=== PATIENT | female | born 1990 | race Asian ===

== ENCOUNTER 2019-07-22 17:54 | Emergency (ER) | payer SELFPAY ==
[~2019-07-22] VITALS: Ht 165.1 cm; Wt 49.9 kg
[2019-07-22 18:13] VITALS: BP 117/64
--- NOTE | 2019-07-22 18:17 | NUR ---
ED Nurse Note: Pt walked in from home, c/o n/v started about 1-2 hours ago. Denies diarrhea. Pt is aaox4, on room air, no resp distress noted. 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 VSS stable at this time.
--- NOTE | 2019-07-22 18:22 | NUR ---
ED Nurse Note: ERMD at bedside.
[2019-07-22] MEDS ORDERED: Morphine Sulfate 2mg/ml Inj(IV/IM USE ONLY) IVP ONE ×2 (18:30→20:00)
--- NOTE | 2019-07-22 19:16 | NUR ---
HAND-OFF: Report given to KEM Nelson. In stable condition.
--- NOTE | 2019-07-22 19:31 | NUR ---
ED Nurse Note: Patient reports an increase in nausea and had an episode of vomitting with ambulation. Will notify ERMD to request order for zofran.
[2019-07-22 19:39] LABS: HEMATOCRIT 46.8 % (37.0-47.0); HEMOGLOBIN 15.9 G/DL (12.0-16.0); MEAN CORPUSCULAR VOLUME 95 FL (80-99); PLATELET COUNT 257 K/UL (150-450); RED BLOOD COUNT 4.94 M/UL (4.20-5.40); RED CELL DISTRIBUTION WIDTH 10.8 % (11.6-14.8); WHITE BLOOD COUNT 11.7 K/UL (4.8-10.8)
[2019-07-22 19:42] LABS: APPEARANCE,URINE SLIGHTLY CLOUDY; BILIRUBIN, URINE NEGATIVE (NEGATIVE); COLOR,URINE AMBER; GLUCOSE, URINE (UA) NEGATIVE (NEGATIVE); KETONES,URINE 2+ (NEGATIVE); LEUKOCYTE ESTERASE ,URINE 2+ (NEGATIVE); NITRITE,URINE NEGATIVE (NEGATIVE); PH,URINE 5 (4.5-8.0); PROTEIN,URINE 1+ (NEGATIVE); UROBILINOGEN,URINE NORMAL MG/DL (0.0-1.0)
--- NOTE | 2019-07-22 19:42 | NUR ---
ED Nurse Note: Patient reports an increase in pain with ambulation to 6/10 on pain scale. Will consult ERMD.
[2019-07-22 19:51] VITALS: BP 113/71
[2019-07-22 19:56] LABS: ANION GAP 14 mmol/L (5-15); BLOOD UREA NITROGEN 9 mg/dL (7-18); CALCIUM 9.8 MG/DL (8.5-10.1); CARBON DIOXIDE 25 MMOL/L (21-32); CHLORIDE 101 MMOL/L (98-107); CREATININE 1.1 MG/DL (0.55-1.30); POTASSIUM 3.5 MMOL/L (3.5-5.1); SODIUM 140 MMOL/L (136-145)
[2019-07-22 20:02] LABS: ALANINE AMINOTRANSFERASE 27 U/L (12-78); ALBUMIN 4.2 G/DL (3.4-5.0); ALKALINE PHOSPHATASE 37 U/L (46-116); ASPARTATE AMINO TRANSFERASE 25 U/L (15-37); BILIRUBIN,TOTAL 0.4 MG/DL (0.2-1.0)
[2019-07-22] MEDS ORDERED: Phenazopyridine 200mg tab ORAL ONE (20:15)
[2019-07-22] MEDS ORDERED: cefTRIAXone 1 GM in NS 55 ML IVPB ONE ×2 (20:15→22:30)
--- NOTE | 2019-07-22 20:23 | Emergency Room Report ---
History of Present Illness General Chief Complaint: Abdominal Pain Source: Patient (Tom Cervantes MD) Present Illness HPI This is a 24-year-old female presents after increased suprapubic abdominal pain. Patient reports having intermittent episodes which are constant but intimately worse. She reports having multiple episodes of vomiting. She reports as being associated suprapubic pain. She denies any prior similar pain in the past. She denies any fever. She reports having multiple episodes of nonbloody emesis. Reports some recent cocaine and alcohol use 3 days ago. One episode of vomiting yesterday. Doesn't think shes' . (Tom Cervantes MD) Allergies: Coded Allergies: NUT - UNSPECIFIED (Unverified Allergy, Unknown, 07/22/19) Uncoded Allergies: NUTS (Allergy, Unknown, 07/22/19) Patient History Past Medical History: see triage record Past Surgical History: other - arthroscopic surgery Last Menstrual Period: 05/2019 Now: No (Tom Cervantes MD) Nursing Documentation-[facility] Past Medical History: No History, Except For Hx Asthma: Yes (Tom Cervantes MD) Review of Systems All Other Systems: negative except mentioned in HPI (Tom Cervantes MD) Physical Exam Vital Signs Date Time Temp Pulse Resp B/P (MAP) Pulse Ox O2 Delivery O2 Flow Rate FiO2 07/22/19 18:00 98.4 66 20 126/75 (92) 99 Room Air Sp02 EP Interpretation: reviewed, normal General Appearance: normal inspection, well appearing, no apparent distress, alert, GCS 15 Head: atraumatic ENT: normal ENT inspection, hearing grossly normal, normal voice Neck: normal inspection, full range of motion, supple, no bony tend Respiratory: normal inspection, lungs clear, normal breath sounds, no respiratory distress, no retraction, no wheezing Cardiovascular #1: regular rate, rhythm, no edema Gastrointestinal: normal inspection, normal bowel sounds, non tender, soft, no guarding, no hernia, tenderness - suprapubic no guarding or rebound Genitourinary: no CVA tenderness Musculoskeletal: normal inspection, back normal, normal range of motion Neurologic: normal inspection, alert, oriented x3, responsive, director [employer] III-XII nml as tested, speech normal Psychiatric: normal inspection, judgement/insight normal, mood/affect normal Skin: no rash (Tom Cervantes MD) Medical Decision Making Diagnostic Impression: Primary Impression: Abdominal pain Qualified Codes: R10.9 - Unspecified abdominal pain Additional Impressions: Substance abuse Urinary tract infection Qualified Codes: N30.00 - Acute cystitis without hematuria ER Course Patient presented for abdominal pain. Differential diagnosis included but was not limited to ectopic , torsion, renal colic, aortic dissection, cocaine overdose among others. Labs Test 07/22/19 19:10 07/22/19 20:20 White Blood Count 11.7 K/UL (4.8-10.8) Red Blood Count 4.94 M/UL (4.20-5.40) Hemoglobin 15.9 G/DL (12.0-16.0) Hematocrit 46.8 % (37.0-47.0) Mean Corpuscular Volume 95 FL (80-99) Mean Corpuscular Hemoglobin 32.2 PG (27.0-31.0) Mean Corpuscular Hemoglobin Concent 34.0 G/DL (32.0-36.0) Red Cell Distribution Width 10.8 % (11.6-14.8) Platelet Count 257 K/UL (150-450) Mean Platelet Volume 6.7 FL (6.5-10.1) Neutrophils (%) (Auto) % (45.0-75.0) Lymphocytes (%) (Auto) % (20.0-45.0) Monocytes (%) (Auto) % (1.0-10.0) Eosinophils (%) (Auto) % (0.0-3.0) Basophils (%) (Auto) % (0.0-2.0) Differential Total Cells Counted 100 Neutrophils % (Manual) 85 % (45-75) Lymphocytes % (Manual) 10 % (20-45) Monocytes % (Manual) 2 % (1-10) Eosinophils % (Manual) 3 % (0-3) Basophils % (Manual) 0 % (0-2) Band Neutrophils 0 % (0-8) Platelet Estimate Adequate Platelet Morphology Normal Red Blood Cell Morphology Normal Urine Color Veronique Urine Appearance Slightly cloudy Urine pH 5 (4.5-8.0) Urine Specific [place] 1.020 (1.005-1.035) Urine Protein 1+ (NEGATIVE) Urine Glucose (UA) Negative (NEGATIVE) Urine Ketones 2+ (NEGATIVE) Urine Blood 2+ (NEGATIVE) Urine Nitrite Negative (NEGATIVE) Urine Bilirubin Negative (NEGATIVE) Urine Ictotest Negative (NEGATIVE) Urine Urobilinogen Normal MG/DL (0.0-1.0) Urine Leukocyte Esterase 2+ (NEGATIVE) Urine RBC 5-10 /HPF (0 - 2) Urine WBC 15-20 /HPF (0 - 2) Urine Squamous Epithelial Cells Moderate /LPF (NONE/OCC) Urine Bacteria Moderate /HPF (NONE) Urine Mucus Moderate /LPF (NONE/OCC) Urine HCG, Qualitative Negative (NEGATIVE) Sodium Level 140 MMOL/L (136-145) Potassium Level 3.5 MMOL/L (3.5-5.1) Chloride Level 101 MMOL/L (98-107) Carbon Dioxide Level 25 MMOL/L (21-32) Anion Gap 14 mmol/L (5-15) Blood Urea Nitrogen 9 mg/dL (7-18) Creatinine 1.1 MG/DL (0.55-1.30) Estimat Glomerular Filtration Rate 59.6 mL/min (>60) Glucose Level 149 MG/DL (74-106) Calcium Level 9.8 MG/DL (8.5-10.1) Total Bilirubin 0.4 MG/DL (0.2-1.0) Aspartate Amino Transf (AST/SGOT) 25 U/L (15-37) Alanine Aminotransferase (ALT/SGPT) 27 U/L (12-78) Alkaline Phosphatase 37 U/L (46-116) Troponin I 0.000 ng/mL (0.000-0.056) Total Protein 8.2 G/DL (6.4-8.2) Albumin 4.2 G/DL (3.4-5.0) Globulin 4.0 g/dL Albumin/Globulin Ratio 1.0 (1.0-2.7) Lipase 80 U/L (73-393) Prothrombin Time 10.6 SEC (9.30-11.50) Prothromb Time International Ratio 1.0 (0.9-1.1) Activated Partial Thromboplast Time 22 SEC (23-33) (Tom Cervantes MD) ER Course Signed out to me. She presents with chief complaint of pelvic pain. Labs unremarkable. Urine showed possible infection. Antibiotics given. Ultrasound showed trace amount of pelvic fluid. Good bilateral flow to ovaries. (Edilberto Gonzalez MD) CT/MRI/US Diagnostic Results CT/MRI/US Diagnostic Results : Imaging Test Ordered: Pelvic ultrasound Impression Read by radiologist. Normal ovarian flow. Trace pelvic fluid. (Edilberto Gonzalez MD) Last Vital Signs Date Time Temp Pulse Resp B/P (MAP) Pulse Ox O2 Delivery O2 Flow Rate FiO2 07/22/19 19:51 98.4 75 18 113/71 100 Room Air Status: improved (Tom Cervantes MD) Status: improved (Edilberto Gonzalez MD) Disposition: HOME, SELF-CARE Condition: Stable Scripts Ibuprofen* (MOTRIN*) 600 Mg Tablet 600 MG ORAL THREE TIMES A DAY, #30 TAB 0 Refills Prov: Edilberto Gonzalez MD 07/22/19 Cephalexin* (KEFLEX*) 500 Mg Capsule 500 MG ORAL TID, #21 CAP Prov: Edilberto Gonzalez MD 07/22/19 Hydrocodone/Acetaminophen 5-325* (HYDROCODONE/ACETAMINOPHEN 5-325*) 1 Each Tablet 1 TAB ORAL Q6H PRN for For Pain, #10 TAB 0 Refills Prov: Edilberto Gonzalez MD 07/22/19 Referrals: NOT CHOSEN IPA/,REFERRING (PCP) Additional Instructions: Follow-up with your doctor in 2-3 days. Return if symptoms worsen. Tom Cervantes MD Jul 22, 2019 20:23 Edilberto Gonzalez MD Jul 22, 2019 23:54
--- NOTE | 2019-07-22 20:53 | NUR ---
ED Nurse Note: Patient is relaxing with friend at bedside. Patient tolerated antibiotic administration well. Will continue to monitor and service any appropriate orders.
--- NOTE | 2019-07-22 21:53 | NUR ---
ED Nurse Note: Patient attempting to relax. Friend at bedside, will continue to monitor.
--- NOTE | 2019-07-22 22:48 | NUR ---
ED Nurse Note: Patient went over for ultrasound.
--- NOTE | 2019-07-22 23:30 | NUR ---
ED Nurse Note: Patient returned from ultrasound.
[2019-07-22] MEDS ORDERED: Metoclopramide 10mg/2ml Inj IVP ONE (23:45)
[2019-07-22] MEDS ORDERED: Ketorolac 30mg Inj IV ONE (23:45)
--- NOTE | 2019-07-22 23:52 | NUR ---
ED Nurse Note: Patient expresses continued nausea. Alternalte antiemetic requested from [facility]. Patient tolerated medication administration well, will continue to monitor.
[2019-07-22] MEDS ORDERED: CEPHALEXIN500 MG ORAL (23:54)
[2019-07-22] MEDS ORDERED: HYDROCODON-ACE1 EA15 ORAL (23:54)
[2019-07-22] MEDS ORDERED: IBUPROFEN600 MG ORAL (23:54)
[2019-07-23 00:01] VITALS: BP 113/71
--- NOTE | 2019-07-23 00:01 | NUR ---
ED Nurse Note: Patient cleared for discharge. Patient verbalized understanding of discharge instructions. ID band removed, IV removed. Patient verbalized understanding of discharge instructions. Patient is A&Ox4, with no s/s of acute distress and able to ambulate with steady gait. Patient departed with all belongings accompanied by her friend.
--- NOTE | 2019-07-24 12:56 | Diagnostic Imaging Report ---
Indication: Pelvic pain, negative test Technique: Transabdominal and transvaginal images of the pelvis. Doppler interrogation of the bilateral ovaries Comparison: none Findings: Pelvic structures are not optimally demonstrated on the transabdominal images, due to lack of bladder distention. Uterus is retroverted, measures 6.7 cm length by 4.3 cm AP. The endometrium measures 6 mm thick. No myometrial abnormality. There is trace free cul-de-sac fluid. The right ovary measures 1.9 cm length. The left ovary measures 3.3 cm length. Both ovaries demonstrate normal blood flow on Doppler interrogation. No ovarian or adnexal mass Impression: Essentially unremarkable exam. Trace free pelvic fluid, presumably physiologic
== END 2019-07-23 00:02 | disposition home or self-care (01) ==
LOC: EMR 18:40
DX: N30.00 Acute cystitis without hematuria (principal); R10.2 Pelvic and perineal pain; F14.10 Cocaine abuse, uncomplicated; J45.909 Unspecified asthma, uncomplicated; Z91.018 Allergy to other foods
CPT/HCPCS: 36415; 76856; 80053; 81003; 81025; 83690; 84484; 85007; 85025; 85610; 85730; 87086; 96361; 96365; 96375; 96376; 99284; J0696; J1885; J2270; J2405; J2765